=== PATIENT | female | born 1965 | race Caucasian/White ===

== ENCOUNTER → 2017-09-09 | Outpatient (CLI) | payer OTHER, BC ==
--- NOTE | 2017-09-09 10:47 | MR ---
EXAMINATION TYPE: MR cervical spine wo con DATE OF EXAM: 09/09/2017 COMPARISON: NONE HISTORY: 52-year-old female Neck pain TECHNIQUE: Multiplanar, multisequence images of the cervical spine were acquired. Findings: No craniocervical junction abnormality, predental space widening, or prevertebral soft tissue swellin g. There is facet arthropathy throughout particularly in the lower cervical spine with grade 1 anterolis thesis at C7-T1. Otherwise, alignment is maintained. Heterogeneous marrow signal without suspicious bone marrow replacement. No prevertebral or paravertebral soft tissue abnormality seen. Have moderate disc/endplate degenerati ve change particularly from C5 through T1 levels with a degenerated, desiccated, narrowed discs with disc osteophyte complexes. Ligamentum flavum thickening at these levels as well. Multilevel facet and upper vertebral joint degenerative changes present. At C2-C3, there is facet degenerative change without canal or foraminal stenosis. At C3-C4, there is facet and uncovertebral joint degenerative change. This results in [id number] e right neuroforaminal stenosis without spinal canal stenosis. At C4-C5, there is facet and uncovertebral joint degenerative change. No significant spinal canal or neural foraminal stenosis. At C5-C6, broad-based disc osteophyte complex with uncovertebral joint and facet degenerative change. Ligamentum flavum thickening is also present. Changes result in moderate right and mild left neural foraminal stenosis with mild spinal canal stenosis. No significant abutment or flattening of the cerv ical cord. At C6-C7, broad-based disc osteophyte complex with uncovertebral joint and facet degenerative changes as well as ligamentum flavum thickening. Changes result in moderate left and [id number] right neuroforaminal stenosis with mild narrowing of the spinal canal. No significant abutment or flattenin g of the cervical cord. At C7-T1, hypertrophic facet arthropathy with grade 1 anterolisthesis. Uncovering of the posterior in tervertebral disc with mild bulging disc. There may be a moderate to severe left neural foraminal danielito nosis. No spinal canal stenosis. Normal course and caliber of the cervical cord. Some artifacts project over the cord on the axial ser ies. No definite T2-weighted cord signal abnormality seen. IMPRESSION: 1. 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 Th ere is a degenerative grade 1 anterolisthesis at C7-T1. 2. Changes mildly narrow the spinal canal at C5-C6 and C6-C7. No foraminal canal compromise or cord c ompression. 3. Variable mild to moderate neural foraminal stenoses as outlined above, there may be more moderate to severe left-sided neural foraminal stenosis at C7-T1.
== END ==
LOC: RADMRIMAIN 08:13
PROVIDERS: ATTEND Orthopaedic Surgery Orthopaedic Surgery of the Spine
DX: M48.02 Spinal stenosis, cervical region (principal); M43.13 Spondylolisthesis, cervicothoracic region; M99.73 Connective tissue and disc stenosis of intervertebral foramina of lumbar region; M47.813 Spondylosis without myelopathy or radiculopathy, cervicothoracic region
CPT/HCPCS: 72141

== ENCOUNTER → 2018-04-21 | Outpatient (CLI) | payer OTHER, BC ==
--- NOTE | 2018-04-21 11:02 | MM ---
Reason for exam: screening (asymptomatic). Baseline mammogram. History: Implant Removal of both breasts, 2016. Saline implants in both breasts, 2006. Physical Findings: Nurse did not find any significant physical abnormalities on exam. MG 3D Screening Mammo W/Cad Bilateral CC and MLO view(s) were taken. The breast tissue is heterogeneously dense. This may lower the sensitivity of mammography. There is no discrete abnormality. These results were verbally communicated with the patient and result sheet given to the patient on 04/21/18. ASSESSMENT: Negative, BI-RAD 1 RECOMMENDATION: Routine screening mammogram of both breasts in 1 year.
--- NOTE | 2018-04-21 13:41 | BD ---
EXAMINATION TYPE: Axial Bone Density DATE OF EXAM: 04/21/2018 COMPARISON: NONE CLINICAL HISTORY: 52 YR OLD FEMALE....ICD-10 CODE: Z13.820 DISORDER OF BONE Height: 67 Weight: 166 FRAX RISK QUESTIONS: Current Tobacco Use: YES RISK FACTORS HISTORY OF: History of Wrist Fracture: FX TO LT WRIST AT AGE 25 YRS OLD Active: YES Diet low in dairy products/other sources of calcium: NO Postmenopausal woman: [facility] 18 YRS AGO... MEDICATIONS: Additional Medications: BP MEDS, MULTIVITAMIN Additional History: HYPERTENSION EXAM MEASUREMENTS: Bone mineral densitometry was performed using the [employer] System. Bone mineral density as measured about the Lumbar spine is: ----- L1-L4(G/cm2): 1.391 T Score Values are as follows: ----- L1: 1.4 ----- L2: 2.8 ----- L3: 1.4 ----- L4: 1.3 ----- L1-L4: 1.8 Bone mineral density FIRST BONE DENSITY.....BASELINE STUDY Bone mineral density about the R hip (g/cm2): 1.078 Bone mineral density about the L hip (g/cm2): 1.109 T Score values are as follows: -----R Neck: 0.2 -----L Neck: 0.3 -----R Total: 0.6 -----L Total: 0.8 Bone mineral density BASELINE STUDY FRAX%s: THERE IS A 4.2% CHANCE FOR A MAJOR OSTEOPOROTIC FX AND A 0.1% FOR HIP FX......PROBABILITY OF FX IN 10 YRS TIME IMPRESSION: Normal (Values between +1 and -1 indicate normal bone mass). Consider repeating this study in 5 year s or sooner if there is some new clinical indication. NOTE: T-SCORE=SD OF THE YOUNG ADULT MEAN.
== END | disposition home or self-care (01) ==
LOC: RADMAMWWP 09:40
PROVIDERS: ATTEND Family Medicine
DX: Z12.31 Encounter for screening mammogram for malignant neoplasm of breast (principal); Z13.820 Encounter for screening for osteoporosis
CPT/HCPCS: 77063; 77067; 77080

== ENCOUNTER → 2018-06-12 | Outpatient (CLI) | payer OTHER, BC ==
--- NOTE | 2018-06-12 16:43 | MR ---
EXAMINATION TYPE: MR knee LT wo con DATE OF EXAM: 06/12/2018 COMPARISON: NONE HISTORY: Pain in left knee per order. Pain locking and swelling for last 3 weeks per patient. TECHNIQUE: Multiplanar, multisequence images of the knee is performed without IV contrast. FINDINGS: MEDIAL MENISCUS: Anterior horn is intact without tear. Oblique signal with irregularity extends to in ferior articular surface with blunting of posterior horn consistent with full-thickness tear. Medial extrusion of meniscus noted on coronal images. LATERAL MENISCUS: Anterior and posterior horns are intact without tear. CRUCIATE LIGAMENTS: The anterior and posterior cruciate ligaments are intact and unremarkable. COLLATERAL LIGAMENTS: The medial collateral ligament and lateral collateral ligament complex are inta ct and unremarkable. EXTENSOR MECHANISM: Visualized quadriceps and patellar tendons are intact. EFFUSION:. There is moderate to large size suprapatellar joint effusion. POPLITEAL CYST: No popliteal/hickey cyst. TRICOMPARTMENT SPACES: Fairly advanced patellofemoral compartment joint space loss is seen with mild- to-moderate spurring. There is moderate spurring medial and lateral tibiofemoral compartments with mo derate narrowing medial tibiofemoral compartment noted. 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 Near full-thickness loss medial tibial femoral compartment is seen. BONE MARROW SIGNAL: Heterogeneity consistent with red marrow reconversion is present. There is centra l lesion tibial plateau favoring subchondral cyst involving the lateral tibial condyle coronal image 19. No reactive osseous changes in the posterior patellar identified. OTHER: No additional significant abnormality is appreciated. IMPRESSION: 1. Full-thickness tear posterior horn of medial meniscus. 2. 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 3. Moderate degenerative changes medial tibiofemoral compartment with significant cartilaginous loss. 4. Moderate to large suprapatellar joint effusion.
== END | disposition home or self-care (01) ==
LOC: RADMRIMAIN 15:44
PROVIDERS: ATTEND Orthopaedic Surgery
DX: S83.242A Other tear of medial meniscus, current injury, left knee, initial encounter (principal); M17.12 Unilateral primary osteoarthritis, left knee; M22.42 Chondromalacia patellae, left knee

== ENCOUNTER → 2018-06-17 | Outpatient (CLI) | payer OTHER, BC ==
[2018-06-17 11:56] LABS: Basophils % (A) 0 %; Eosinophils # (A) 0.1 k/uL (0-0.7); Eosinophils % (A) 1 %; Lymphocytes # (A) 1.9 k/uL (1.0-4.8); Lymphocytes % (A) 27 %; MCH 32.2 pg (25.0-35.0); MCHC 31.8 g/dL (31.0-37.0); MCV 101.4 fL (80.0-100.0); Mean Platelet Volume 7.8; Monocytes # (A) 0.3 k/uL (0-1.0); Monocytes % (A) 4 %; Neutrophils # (A) 4.6 k/uL (1.3-7.7); Neutrophils % (A) 66 %; Platelet Count 188 k/uL (150-450); RBC 4.04 m/uL (3.80-5.40); RDW 12.1 % (11.5-15.5)
[2018-06-17 12:24] LABS: Potassium 4.6 mmol/L (3.5-5.1)
== END | disposition home or self-care (01) ==
LOC: LABPAT 11:01
PROVIDERS: ATTEND Orthopaedic Surgery
DX: Z01.812 Encounter for preprocedural laboratory examination (principal); M23.92 Unspecified internal derangement of left knee
CPT/HCPCS: 36415; 80051; 85025

== ENCOUNTER 2018-06-26 09:17 | Day surgery (SDC) | payer OTHER, BC ==
[2018-06-23 13:03] VITALS: BMI 24.5
--- NOTE | 2018-06-25 09:24 | HP ---
HISTORY AND PHYSICAL CHIEF COMPLAINT: Left knee pain. 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 She notes medial and lateral pain with prolonged walking. She has occasional giving way. She has had a history of previous arthroscopy in 1998 and 1999. She has been taking anti-inflammatories. In addition, has had an injection with minimal relief. PAST MEDICAL HISTORY: Significant for hypertension. PAST SURGICAL HISTORY: Significant for left knee arthroscopy x2, bilateral elbow surgery, bilateral foot surgery, bilateral carpal tunnel release, and section. CURRENT MEDICATIONS: Lisinopril. ALLERGIES: She notes allergy to VICODIN. FAMILY HISTORY: Significant for stroke, heart disease and cancer. SOCIAL HISTORY: Significant for 1/2 pack per day tobacco use. REVIEW OF SYSTEMS: Sixteen-point review of systems otherwise reviewed and is noncontributory. PHYSICAL EXAMINATION: On examination, the patient is approximately 5 feet 9 inches, 168 pounds of mesomorphic habitus. HEENT exam is nonfocal. Neck is supple. She has painless passive motion of her left hip. Straight leg raise is negative. Active motion left knee -10 to 116 degrees of flexion. She has a moderate effusion. She is tender about the medial joint line. Collaterals are stable, Toi's negative, Dre's elicits medial pain. Her distal neurovascular exam appears intact in the left lower extremity. MRI report 06/12/2018 shows a posterior medial meniscal tear along with a chondral defect of the medial femoral condyle. IMPRESSION: 1. Left knee internal derangement with symptomatic medial meniscal tear. 2. Left knee medial compartment osteoarthrosis. 3. Possible chondral injury, distal medial femoral condyle, left knee. RECOMMENDATIONS: I talked to the patient at length regarding her condition and treatment options. At this point, she is quite symptomatic and opts to proceed with surgery. We will plan to proceed with arthroscopic evaluation with possible partial medial meniscectomy, possible medial femoral chondrectomy, and possible microfracture of the medial femoral condyle. Risks and benefits were discussed at length in layman's terms. MMODL / IJN: [id number] /
[~2018-06-26 09:17] MED LIST: DEXAMETHASONE SOD PHOSPHATE 10 MG/ML 1 ML VIAL IV ONE; LACTATED RINGERS 1,000 ML IV SCH; MIDAZOLAM 2 MG/2 ML VIAL IV PRN; ONDANSETRON 4 MG/2 ML VIAL IVP ONE; SCOPOLAMINE 1.5MG/72HR PATCH TRANSDERM ONE; ceFAZolin IN SWFI 2 GM/20 ML SYRINGE IVP ONE; fentaNYL (PF) 50 MCG/ML 2 ML AMP IV PRN
[2018-06-26] MEDS ORDERED: PROPOFOL 10 MG/ML 20 ML VIAL IV ONE (11:00)
[2018-06-26] MEDS ORDERED: HYDROmorphone (PF) 1 MG/ML ONE (11:00)
[2018-06-26] MEDS ORDERED: fentaNYL (PF) 50 MCG/ML 2 ML AMP ONE (11:00)
[2018-06-26] MEDS ORDERED: MIDAZOLAM 2 MG/2 ML VIAL ONE (11:00)
[2018-06-26] MEDS ORDERED: EPINEPHrine (PF) 1 ML in SODIUM CHLORIDE 0.9% IRRIGATIO 3,000 ML IRRIGATION ONE ×2 (11:22→11:24)
--- NOTE | 2018-06-26 11:54 | P.OP ---
Date of Procedure: 06/26/18 Preoperative Diagnosis: Left knee internal derangement Postoperative Diagnosis: Posterior left knee medial meniscal tear/grade 3 chondral injury distal medial femoral condyle/grade 3 chondral injury posterior lateral femoral condyle/ lateral meniscal tear Procedure(s) Performed: Left knee arthroscopic partial medial meniscectomy/partial lateral meniscectomy/ medial and lateral femoral chondrectomy/microfracture medial femoral condyle Anesthesia: GETA Surgeon: Leonel Sue Estimated Blood Loss (ml): 10 Pathology: none sent Condition: stable Disposition: PACU Indications for Procedure: The patient's a 53-year-old female who presents with progressive right knee pain and mechanical symptoms despite conservative measures. A discussion of the risks and benefits of operative intervention versus continued conservative measures was made with the patient. She opted to proceed with surgery. Operative risks to include infection, neurovascular injury, development of blood clots, possible incomplete resolution of symptoms, possible worsening of symptoms and need for subsequent procedures was discussed. Informed consent was obtained. Operative Findings: As below Description of Procedure: The patient was brought to the operating room, and after induction of general anesthesia examined the left knee. Collaterals were stable, Toi was negative, and posterior drawer was negative. The left lower extremity was prepped and draped in a normal fashion. A superior lateral portal was made through a 3 mm skin incision superior and lateral to the patella. This was used for outflow. A lateral portal was made through a 5 mm vertical skin incision lateral to the patella tendon above the joint line. Diagnostic arthroscopy was performed. On inspection of the medial compartment, a complex tear involving the posterior horn medial meniscus was noted. Previous partial meniscectomy is also noted. This was debrided back to stable base with straight baskets and motorized shaver. A grade 3 chondral defect was noted involving the distal medial portion of the medial femoral condyle. There is a loose chondral fragment degrees Bactocill based motorized shaver. Microfracture was performed with a chondral all breeching the subchondral surface down to bleeding bone. Grade 2-3 chondral changes were noted diffusely in the medial compartment. On inspection of the notch, the anterior cruciate ligament appeared to be intact. On inspection of the lateral compartment a degenerative tear involving the posterior horn of the lateral meniscus in the white-white junction was noted. This was debrided back to stable base with straight baskets and a motorized shaver. A grade 3 chondral injury was noted involving the posterior aspect of the lateral femoral condyle. There was a loose chondral fragment debrided back to stable base with a motorized shaver. On inspection of the patellofemoral articulation grade 3-4 chondral changes were noted diffusely. There were no gross loose chondral fragments. The gutters were clear debris. The knee was then thoroughly irrigated. The portals were closed with Steri-Strips. A sterile dressing was applied in addition to a compression stocking. The patient was awoken from general anesthesia and transferred to recovery room in good condition. Blood loss was estimated at 10 mL. No complications were incurred.
[2018-06-26 12:03] VITALS: TEMP 98
[2018-06-26] MEDS ORDERED: KETOROLAC 30 MG/ML 1 ML VIAL IVP ONE (12:03)
[2018-06-26] MEDS ORDERED: HYDROmorphone 1 MG/ML 1 ML SYRINGE IVP ONE (12:33)
[2018-06-26 12:38] VITALS: RESP 16
[2018-06-26 12:57] VITALS: BP 153/70; PULSE 68
== END 2018-06-26 14:00 | disposition home or self-care (01) ==
LOC: OR 09:17
PROVIDERS: ATTEND Orthopaedic Surgery
DX: S83.242A Other tear of medial meniscus, current injury, left knee, initial encounter (principal); S83.282A Other tear of lateral meniscus, current injury, left knee, initial encounter; X58.XXXA Exposure to other specified factors, initial encounter; S83.32XA Tear of articular cartilage of left knee, current, initial encounter; I10 Essential (primary) hypertension; F17.210 Nicotine dependence, cigarettes, uncomplicated; M17.12 Unilateral primary osteoarthritis, left knee; Z79.899 Other long term (current) drug therapy; Z88.5 Allergy status to narcotic agent
CPT/HCPCS: 29880; 29879; J2250; J1100; J2405; J0171; J3010; J1885; J1170; J2704

== ENCOUNTER → 2019-06-21 | Outpatient (CLI) | payer OTHER, BC ==
--- NOTE | 2019-06-21 16:13 | MR ---
EXAMINATION TYPE: MR knee RT wo con DATE OF EXAM: 06/21/2019 COMPARISON: None HISTORY: Right knee pain TECHNIQUE: Multiplanar, multisequence imaging of the right knee is performed without IV contrast. FINDINGS: MEDIAL MENISCUS: There is a longitudinal tear of the posterior horn and body of the medial meniscus w ith flipped fragment seen approximately 1.2 cm proximal from the posterior meniscal root. There is as sociated meniscal extrusion of 3 mm. LATERAL MENISCUS: Anterior and posterior horns are intact, however at the anterior root there is inte rmediate signal concerning for a small longitudinal tear CRUCIATE LIGAMENTS: The anterior and posterior cruciate ligaments are intact and increased signal see n of the insertional fibers of the anterior cruciate ligament indicative of low-grade sprain. COLLATERAL LIGAMENTS: The medial collateral ligament and lateral collateral ligament complex are inta ct. High signal seen superficial and deep to the medial collateral ligament. No discontinuity is seen . EXTENSOR MECHANISM: Visualized quadriceps and patellar tendons are intact. EFFUSION: Small to moderate uncomplicated joint effusion is seen. POPLITEAL CYST: Trace popliteal/Hinds's cyst situated between the medial head of the gastrocnemius a nd semimembranosus. TRICOMPARTMENT SPACES: There are small tricompartmental osteophytes and patellofemoral compartment omid int space narrowing. CARTILAGE: There is a small full-thickness cartilaginous defect of the weightbearing surface of the m edial femoral condyle measuring 2 mm. Undermining is also seen just adjacent to this. Diffuse chondra l irregularity is seen of the medial compartment cartilage as well as of the lateral compartment cart ilage with focal partial-thickness defect of the weightbearing surface of the lateral femoral condyle measuring 5 mm. There is also a partial thickness chondral defect of the patellar apex and medial fa cet measuring 6 mm. BONE MARROW SIGNAL: There is a small 5 mm stable osteochondral defect of the medial femoral condyle w ith surrounding patchy bone marrow edema of the medial femoral condyle. OTHER: There is fluid signal along the popliteus tendon indicative of a low-grade partial-thickness tear. Subcutaneous edema seen within the deep fascial planes of the posterior knee. IMPRESSION: 1. Longitudinal tear of the posterior horn of the medial meniscus extending into the meniscal body wi th 3 mm associated meniscal extrusion and foot fragment 1.2 cm from the posterior root. 2. Findings suspicious for a small longitudinal tear of the anterior root of the lateral meniscus. 3. Stable medial femoral condyle 5 mm osteochondral defect with surrounding bone marrow edema of the medial femoral condyle. 4. Moderate tricompartmental arthropathy with moderate tricompartmental chondrosis as detailed above in the cartilage section. 5. Low-grade partial-thickness tear of the popliteus tendon and surrounding edema. 6. Small to moderate uncomplicated suprapatellar joint effusion. 7. Low-grade sprain of the anterior cruciate ligament and medial collateral ligament without disconti nuity.
== END | disposition home or self-care (01) ==
LOC: RADMRIMAIN 12:44
PROVIDERS: ATTEND Orthopaedic Surgery Sports Medicine
DX: S83.241A Other tear of medial meniscus, current injury, right knee, initial encounter (principal); M21.851 Other specified acquired deformities of right thigh; M17.11 Unilateral primary osteoarthritis, right knee; M94.8X8 Other specified disorders of cartilage, other site; S86.811A Strain of other muscle(s) and tendon(s) at lower leg level, right leg, initial encounter; S83.511A Sprain of anterior cruciate ligament of right knee, initial encounter; S83.411A Sprain of medial collateral ligament of right knee, initial encounter

== ENCOUNTER → 2019-07-12 | Outpatient (CLI) | payer OTHER, BC ==
--- NOTE | 2019-07-13 08:25 | USB ---
Reason for exam: additional evaluation requested from abnormal screening. History: Patient is postmenopausal. Implant Removal of both breasts, 2016. Saline implants in both breasts, 2006. Physical Findings: Nurse did not find any significant physical abnormalities on exam. US Breast Workup Limited THOMAS Right limited breast ultrasound including focal area of concern, retroareolar and axilla demonstrates ducts seen at posterior nipple. Left limited breast ultrasound including focal area of concern, retroareolar and axilla demonstrates ducts seen at posterior nipple. 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 Additional mammographic views needed on the left breast. These results were verbally communicated with the patient and result sheet given to the patient on 07/12/19. ASSESSMENT: Incomplete: need additional imaging evaluation, BI-RAD 0 RECOMMENDATION: Special view mammogram of the left breast.
== END | disposition home or self-care (01) ==
LOC: RADUSWWP 13:39
PROVIDERS: ATTEND Family Medicine
DX: R92.8 Other abnormal and inconclusive findings on diagnostic imaging of breast (principal)

== ENCOUNTER → 2019-07-12 | Outpatient (CLI) | payer OTHER, BC ==
--- NOTE | 2019-07-06 09:51 | MM ---
Reason for exam: screening (asymptomatic). Last mammogram was performed 1 year and 2 months ago. History: Patient is postmenopausal. Implant Removal of both breasts, 2016. Saline implants in both breasts, 2006. Physical Findings: A clinical breast exam by your physician is recommended on an annual basis and results should be correlated with mammographic findings. MG 3D Screening Mammo W/Cad Bilateral CC and MLO view(s) were taken. Prior study comparison: April 21, 2018, bilateral MG 3d screening mammo w/cad. The breast tissue is heterogeneously dense. This may lower the sensitivity of mammography. Finding #1: Architectural distortion located 4 cm from the nipple in the left breast on CC view zone B, C. Finding #2: There is a 5 mm high density mass in the subareolar position of the right breast. New finding since April 21, 2018. ASSESSMENT: Incomplete: need additional imaging evaluation, BI-RAD 0 RECOMMENDATION: Ultrasound of both breasts. [facility] will attempt to contact patient to return for ultrasound.
--- NOTE | 2019-07-13 09:10 | ECHOF ---
Referral Reason:I10 Essential hypertension MEASUREMENTS -------- HEIGHT: 175.3 cm WEIGHT: 74.8 kg BP: RVIDd: 2.7 cm (< 3.3) IVSd: 1.3 cm (0.6 - 1.1) LVIDd: 4.2 cm (3.9 - 5.3) LVPWd: 1.5 cm (0.6 - 1.1) IVSs: 1.5 cm LVIDs: 3.1 cm LVPWs: 1.3 cm LA Diam: 2.9 cm (2.7 - 3.8) LAESV Index (A-L): 27.73 ml/m Ao Diam: 2.7 cm (2.0 - 3.7) AV Cusp: 1.8 cm (1.5 - 2.6) LA Diam: 3.4 cm (2.7 - 3.8) MV EXCURSION: 16.594 mm (> 18.000) MV EF SLOPE: 51 mm/s (70 - 150) EPSS: 0.4 cm MV E Franc: 0.44 m/s MV DecT: 277 ms MV A Franc: 0.60 m/s MV E/A Ratio: 0.73 RAP: 5.00 mmHg RVSP: 20.91 mmHg FINDINGS -------- Sinus rhythm. This was a technically good study. The left ventricular size is normal. There is mild concentric left ventricular hypertrophy. Overa ll left ventricular systolic function is normal with, an EF between 55 - 60 %. The diastolic fillin g pattern is normal for the age of the patient 5.27. The right ventricle is normal in size. The aortic valve is trileaflet, and appears structurally normal. No aortic stenosis or regurgitation. There is trace mitral regurgitation. Mild tricuspid regurgitation present. Right ventricular systolic pressure is normal at < 35 mmHg. There is no evidence of pulmonary hypertension. There is no pulmonic regurgitation present. The aortic root size is normal. There is no pericardial effusion. CONCLUSIONS -------- 1. Sinus rhythm. 2. This was a technically good study. 3. The left ventricular size is normal. 4. Overall left ventricular systolic function is normal with, an EF between 55 - 60 %. 5. The diastolic filling pattern is normal for the age of the patient 5.27 6. The right ventricle is normal in size. 7. The aortic valve is trileaflet, and appears structurally normal. No aortic stenosis or regurgitati on. 8. There is trace mitral regurgitation. 9. Mild tricuspid regurgitation present. 10. Right ventricular systolic pressure is normal at < 35 mmHg. 11. There is no evidence of pulmonary hypertension. 12. There is no pulmonic regurgitation present. 13. The aortic root size is normal. 14. There is no pericardial effusion. HAND FORMER HELPER: Georgia Jurado RDCS
== END | disposition home or self-care (01) ==
LOC: RADMAMWWP 07-05 11:42 → RADECHMAIN 13:11
PROVIDERS: ATTEND Family Medicine
DX: Z12.31 Encounter for screening mammogram for malignant neoplasm of breast (principal); I07.1 Rheumatic tricuspid insufficiency; I10 Essential (primary) hypertension
CPT/HCPCS: 77063; 77067; 93306

== ENCOUNTER → 2019-07-12 | Outpatient (CLI) | payer OTHER, BC ==
--- NOTE | 2019-07-13 08:27 | MM ---
Reason for exam: additional evaluation requested from abnormal screening. Last mammogram was performed less than 1 month ago. History: Patient is postmenopausal. Implant Removal of both breasts, 2016. Saline implants in both breasts, 2005. MG 3D Work Up W/Cad LT Spot compression CC and CCRM view(s) were taken of the left breast. Prior study comparison: July 05, 2019, bilateral MG 3d screening mammo w/cad. April 21, 2018, bilateral MG 3d screening mammo w/cad. The breast tissue is heterogeneously dense. This may lower the sensitivity of mammography. The previously seen abnormality resolves on additional views and appears as fibroglandular tissue compatible with summation. These results were verbally communicated with the patient and result sheet given to the patient on 07/12/19. ASSESSMENT: Negative, BI-RAD 1 RECOMMENDATION: Return to routine screening mammogram schedule for both breasts.
== END | disposition home or self-care (01) ==
LOC: RADMAMWWP 14:40
PROVIDERS: ATTEND Radiology Body Imaging
DX: R92.8 Other abnormal and inconclusive findings on diagnostic imaging of breast (principal)
CPT/HCPCS: 77061; 77065